=== PATIENT | male | born 1950 | race Caucasian/White ===

== ENCOUNTER 2020-08-28 01:05 | Outpatient (CLI) | payer MEDICARE, SELFPAY ==
[2020-08-28 18:01] LABS: SARS-CoV-2 RNA PCR Negative
== END 2020-08-28 01:06 | disposition home or self-care (01) ==
LOC: ANHCOVIDDT 01:05
PROVIDERS: Visit Provider Internal Medicine Gastroenterology
DX: Z01.812 Encounter for preprocedural laboratory examination (principal); Z20.828 Contact with and (suspected) exposure to other viral communicable diseases
CPT/HCPCS: 87635; C9803; U0003

== ENCOUNTER 2020-08-30 01:17 | Day surgery (SDC) | payer MEDICARE, SELFPAY ==
[2020-08-23 13:18] VITALS: BMI 28.0
[2020-08-30 08:25] VITALS: BP 147/75; PULSE 70; RESP 18; TEMP 35.8; O2SAT 99; BMI 27.4
--- NOTE | 2020-08-30 08:29 | P.HP_ITS ---
History of Present Illness History of Present Illness Consent: Risks, benefits, and alternatives have been discussed and questions answered. Patient agrees to proceed with procedure. Chief complaint: Neoplasm Screening Narrative: Jose Juan Garcia is a 70 year old W male referred for screening colonoscopy secondary history of colonic polyps. Last colonoscopy was 7 years ago. Patient is asymptomatic. 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 [facility] Past Medical History Medical History (Updated 08/30/20 @ 08:31 by Joe Gil MD) Diabetes insipidus Dyslipidemia Hypertension Skin cancer of forehead Social History Social History Alcohol intake: never Living arrangements: with family Gender identity (if verbalized by the patient): Male Sexual Orientation (if Verbalized by the Patient): Straight or Heterosexual Spiritual care concerns: No Meds Home Medications and Allergies Home Medications Medication Instructions Recorded Confirmed Type atorvastatin 40 mg PO DAILY 08/23/20 08/30/20 History desmopressin 0.1 mg PO DAILY 08/23/20 08/30/20 History finasteride [Proscar] 5 mg PO DAILY 08/23/20 08/30/20 History levothyroxine [Unithroid] 75 mcg PO DAILY 08/23/20 08/30/20 History lisinopril 10 mg PO DAILY 08/23/20 08/30/20 History vemurafenib 480 mg PO Q12H 08/23/20 08/30/20 History Allergies Allergy/AdvReac Type Severity Reaction Status Date / Time No Known Allergies Allergy Verified 08/30/20 08:22 Vital Signs Vital Signs - 24 hr 08/30/20 08:25 Temperature 35.8 C L Pulse Rate 70 Respiratory Rate 18 Blood Pressure 147/75 H Pulse Oximetry 99 Exam 2 Const: Orientation/consciousness: patient oriented x3 Resp: Auscultation: clear to auscultation bilaterally Cardio: Rate: regular rate Rhythm: regular rhythm Heart sounds: no murmurs GI: GI Palp: Yes Soft to palpation, No Tenderness to palpation present (GI), Yes No hepatosplenomegaly present and No Palpable mass present Auscultation: normal bowel sounds Neuro: General: patient oriented x3 and no focal motor deficits Extrem: General: no pedal edema Assessment and Plan Additional Plan screening colonoscopy secondary history of colonic polyps
[2020-08-30] MEDS: LACTATED RINGERS 1,000 ML 150 ML IV CONT (08:39)
--- NOTE | 2020-08-30 08:52 | WPDANESEPPF ---
Anes - Initial Pre Proc Eval Procedure: Operation Date: 08/30/20 09:30 Proposed Procedures p Screening Colonoscopy - Joe Gil MD Date/Time: 08/30/20 08:52 Surgeon: Joe Gil MD Pre Op Diagnosis: Neoplasm Screening Patient Data Age: 70 Gender: M Height: 6 ft Weight: 91.8 kg Last Vital Signs Temp 35.8 C L 08/30/20 08:25 Pulse 70 08/30/20 08:25 Resp 18 08/30/20 08:25 BP 147/75 H 08/30/20 08:25 Pulse Ox 99 08/30/20 08:25 Allergies Allergy/AdvReac Type Severity Reaction Status Date / Time No Known Allergies Allergy Verified 08/30/20 08:22 Home Medications Medication Instructions Recorded Confirmed Type atorvastatin 40 mg PO DAILY 08/23/20 08/30/20 History desmopressin 0.1 mg PO DAILY 08/23/20 08/30/20 History finasteride [Proscar] 5 mg PO DAILY 08/23/20 08/30/20 History levothyroxine [Unithroid] 75 mcg PO DAILY 08/23/20 08/30/20 History lisinopril 10 mg PO DAILY 08/23/20 08/30/20 History vemurafenib 480 mg PO Q12H 08/23/20 08/30/20 History Patient hx anesthesia problems: none Family hx anesthesia problems: none PMFSH Past Medical History Medical History Diabetes insipidus Dyslipidemia [place] disease Hypertension Skin cancer of forehead Social History Social History Alcohol intake: never Living arrangements: with family Gender identity (if verbalized by the patient): Male Sexual Orientation (if Verbalized by the Patient): Straight or Heterosexual Spiritual care concerns: No Anes - Eval Final PreProcedure Day of Procedure 08/30/20 08:52 Patient weight: overweight Heart: regular rate and rhythm Lungs: clear to auscultation Airway: Mallampati scale class II Neurological: alert and oriented Last oral intake: >/= 8 hours ASA classification: III Emergent: no Anesthetic plan: proceed Anesthesia type and monitoring: general GIVS and standard monitoring Informed Consent: The patient's anesthetic plan and its attendant risks and benefits were discussed with the patient/family/POA. Questions were solicited and answers provided to the satisfaction of the patient/family/POA.
[2020-08-30 10:03] VITALS: BP 111/72; PULSE 69; RESP 15; O2SAT 97
[2020-08-30 10:13] VITALS: BP 126/72; PULSE 63; RESP 15; O2SAT 98
[2020-08-30 10:23] VITALS: BP 122/60; PULSE 71; RESP 16; O2SAT 99
== END 2020-08-30 10:55 | disposition home or self-care (01) ==
PROVIDERS: PCP Internal Medicine; Visit Provider Internal Medicine Gastroenterology
PROC: 0DJD8ZZ Inspection of Lower Intestinal Tract, Via Natural or Artificial Opening Endoscopic (ICD-10-PCS; CPT 45378; principal; 2020-08-30 09:30)
DX: Z12.11 Encounter for screening for malignant neoplasm of colon (principal); D12.4 Benign neoplasm of descending colon; E88.89 Other specified metabolic disorders; E23.2 Diabetes insipidus; E78.5 Hyperlipidemia, unspecified; I10 Essential (primary) hypertension; Z86.010 Personal history of colon polyps
CPT/HCPCS: 45380; 88305; J2704; J7120